=== PATIENT | female | born 1960 | race Caucasian/White ===

== ENCOUNTER 2018-08-04 06:20 | Day surgery (SDC) | payer BC ==
--- NOTE | 2018-08-01 19:06 | HP ---
PREOPERATIVE HISTORY AND PHYSICAL: DATE OF ADMISSION/SURGERY: 08/04/18 - OR [facility] DATE OF OFFICE VISIT: 08/01/18 ATTENDING SURGEON: Dr. Isa Mccullough.* (DICTATED BY JAMAAL ROSS) PROCEDURE: Right shoulder arthroscopic rotator cuff repair, decompression, debridement, removal of loose body, and excision of distal clavicle. CHIEF COMPLAINT: Right shoulder pain. HISTORY OF PRESENT ILLNESS: Janet is a 58-year-old female, who presents to the clinic for right shoulder pain due to a partial-thickness rotator cuff tear , loose body, biceps tendinitis, and AC joint arthritis. She has failed conservative measures and has therefore agreed to undergo a right shoulder arthroscopic rotator cuff repair, decompression, debridement, removal of loose body, and excision of distal clavicle with Dr. Mccullough on 08/04/18. PAST MEDICAL HISTORY: Hypertension, spinal stenosis, and asthma. PAST SURGICAL HISTORY: Left knee replacement, ACL reconstruction on the left, and tubal ligation. The patient denies prior complications with anesthesia. MEDICATIONS: 1. Avapro 150 mg once daily. 2. Hydrochlorothiazide 25 mg once daily. 3. Vitamin D3 1000 units 1 by mouth twice a day. 4. Clindamycin 300 mg 2 tabs 1 hour prior to dental procedures. ALLERGIES: IODINE, PENICILLINS, SHELLFISH-DERIVED PRODUCTS, TREE NUTS. FAMILY HISTORY: Positive for heart disease and diabetes. Her dad has a history of DVT, but he had a history of leg injury with scarring that predisposed him to this. No other family history of DVT or PE. SOCIAL HISTORY: She lives with her spouse. She denies tobacco use. She denies alcohol consumption. She is left-hand dominant. REVIEW OF SYSTEMS: A 14-point review of systems was reviewed with the patient. Positive for current complaint, otherwise negative. Denies fever, chills, chest pain, shortness of breath, history of DVT or PE, history of bleeding disorder. PHYSICAL EXAMINATION GENERAL: A 58-year-old well-developed, well-nourished female, in no acute distress. VITAL SIGNS: Height 63, weight 192, pulse 84, blood pressure 148/90, respiratory rate , temperature 96.8, BMI 34.0. HEENT: Normocephalic, atraumatic. PERRLA. Throat clear. NECK: Supple. PULMONARY: Lungs are clear to auscultation bilaterally. No wheezing, rhonchi, or rales. CARDIO: Regular rate and rhythm. S1, S2. No murmurs, gallops, or rubs. No edema. ABDOMEN: Positive bowel sounds. Soft, nontender. NEURO: Alert and oriented x3. Cranial nerves grossly intact. MUSCULOSKELETAL: Right upper extremity: Skin is intact. No warmth or erythema. Forward flexion to 150, abduction to 150, external rotation to 50. Full range of motion of the elbow, wrist, and hand. Internal rotation to thoracolumbar spine. +4/5 strength to rotator cuff testing with pain. Tender over the AC joint and biceps tendon. +2 radial pulse. Sensation intact to light touch distally. DIAGNOSTIC STUDIES: MRI revealed partial-thickness tearing of the rotator cuff with tendinopathy, loose body in the subcoracoid space with significant biceps tendinitis, no obvious glenohumeral joint osteoarthritis, and severe AC joint osteoarthritis. IMPRESSION: Right shoulder acromioclavicular joint arthritis, biceps tendinitis , rotator cuff tear, and loose body. PLAN: The patient is scheduled to undergo a right shoulder arthroscopic rotator cuff repair, decompression, debridement, removal of loose body, and excision of distal clavicle with Dr. Mccullough on 08/04/18. Percocet will be used for postop pain management. She will follow up 10 to 14 days postop for followup and suture removal. JAMAAL ROSS [id number]/[facility] #: [id number] [facility] CENTERRebecca
[~2018-08-04 06:20] MED LIST: Buffered Lidocaine 1% SYRIN* 1 ML/SYRINGE INTRADERM ONE; Dexamethasone TAB* 4 MG ONE; Dexamethasone TAB* 4 MG PO ONE; DiMENhydriNATE IV* 50 MG/ML VIAL IV PUSH PRN; Famotidine IV* 10 MG/ML 2 ML (20 mg) IV ONE; Famotidine IV* 10 MG/ML 2 ML (20 mg) ONE; Lactated Ringers 1000 ML Bag* 1,000 ML IV SCH; Levalbuterol 0.63MG/3ML NEB* UNIT OF USE INH ONE; Morphine 4 MG/ML VIAL (1 ml) 4 MG/ML VIAL IV PRN; Naloxone* 0.4 MG/ML 1 ML VIAL IV PRN; Ondansetron INJ* 2 MG/ML VIAL ONE; PROCHLORPERAZINE INJ 5 MG/ML 2 ML VIAL IV PRN; Scopolamine 1.5 mg* PATCH TRANSDERM PRN; fentaNYL* 50 MCG/ML 2 ML VIAL (100 MCG VIAL) IV PRN; oxyCODONE/Acetamin 5/325 MG* TAB PO PRN
[2018-08-04] MEDS ORDERED: ceFAZolin 2 GM in NS PREMIX(*) 2 GM/100 ML BAG IVPB ONE (06:29)
[2018-08-04] MEDS ORDERED: Ondansetron ODT TAB* 4 MG ONE (06:53)
[2018-08-04] MEDS ORDERED: Bupivacaine 0.25% SDV* 30 ML ONE ×2 (06:58→08:16)
[2018-08-04] MEDS ORDERED: Propofol* 10 MG/ML 20 ML BTL ONE (07:06)
[2018-08-04] MEDS ORDERED: PROCHLORPERAZINE INJ 5 MG/ML 2 ML VIAL ONE (07:06)
[2018-08-04] MEDS ORDERED: Lidocaine 2% PF * 5 ML VIAL ONE ×2 (07:06→07:08)
[2018-08-04] MEDS ORDERED: Ketorolac INJ* 30 MG/ML 1 ML VIAL ONE (07:06)
[2018-08-04] MEDS ORDERED: fentaNYL* 50 MCG/ML 2 ML VIAL (100 MCG VIAL) ONE (07:07)
[2018-08-04] MEDS ORDERED: Midazolam* 1 MG/ML 5 ML VIAL (5 MG) ONE (07:07)
[2018-08-04] MEDS ORDERED: Phenylephrine 10 MG/ML VIAL* 1 ML VIAL ONE (08:02)
[2018-08-04] MEDS ORDERED: oxyCODONE/Acetamin 5/325 MG* TAB ONE (09:30)
[2018-08-04 10:33] VITALS: BP 125/71
--- NOTE | 2018-08-05 00:05 | OP ---
DATE OF OPERATION: 08/04/18 - [facility] DATE OF : 58 SURGEON: Isa Mccullough MD ASSISTANTS: 1. JAMAAL Miramontes 2. RUSH Gamino student. ANESTHESIOLOGIST: Dr. Hightower. ANESTHESIA: General with interscalene block. PRE-OP DIAGNOSES: 1. Right shoulder glenohumeral arthritis. 2. Loose body. 3. Partial thickness tear of the rotator cuff. 4. Biceps tendonitis. 5. Acromioclavicular joint arthritis. POST-OP DIAGNOSES: 1. Right shoulder glenohumeral arthritis. 2. Loose body. 3. Partial thickness tear of the rotator cuff. 4. Biceps tendonitis. 5. Acromioclavicular joint arthritis. OPERATIVE PROCEDURE: Right shoulder arthroscopy with: 1. Extensive glenohumeral debridement with acromioplasty. 2. Removal of loose body x1 greater than 5 mm. 3. Rotator cuff repair with Regeneten patch. 4. Subacromial decompression with acromioplasty. 5. Distal clavicle excision. 6. Subpectoral biceps tenodesis. COMPLICATIONS: None. ESTIMATED BLOOD LOSS: Minimal. IMPLANTS: One Regeneten patch size medium and one Q-FIX anchor 2.8 mm. INDICATIONS: Janet Peña is a 58-year-old female who had failed conservative management and was diagnosed with high-grade partial thickness tear of the rotator cuff as well as significant arthritis of the glenohumeral joint. She had the small loose body as well. She has failed conservative management including physical therapy, antiinflammatories, ice and heat, and has elected to proceed with surgical treatment. DESCRIPTION OF PROCEDURE: The patient was greeted in the preoperative area by the attending surgeon. Correct extremity was marked and consent was confirmed. The patient then underwent interscalene nerve block after which she was brought back to the operating suite, where she was placed in supine position on the operating table. She underwent general anesthesia and LMA intubation, after which she was placed in the left lateral decubitus position with all bony prominences well padded. She was secured with pegboard. The right shoulder was draped unsterile with 10 pounds of traction. The right shoulder was then prepped and draped in the usual sterile fashion, beginning with chlorhexidine soap, scrub, and alcohol wipe and a final prep of ChloraPrep. After appropriate surgical pause indicating side, site, procedure, and administration of antibiotics, the standard postero-lateral portal was made sharply with 11 blade. The scope was introduced into the joint. The joint was examined. There were grade 3 changes to the glenohumeral joint. There was a large loose body that present. It was about 1.5 cm. The anterior portal was made using 18 gauge for localization. The portal was expanded to allow for grasper to remove the large loose body which was removed in 1 piece. The kali were then used to do debridement of the chondroplasty as well as debride the anterior, posterior, and superior labrum. The biceps had significant synovitis and tendonitis. Superior labrum was torn and the biceps was subluxed. The undersurface of the rotator cuff had a high-grade partial thickness tear with an unstable flap, which was debrided back. The inferior recess was intact, although there was significant synovitis. Subscap was intact. The shaver was used to help debride the anterior, posterior, and superior labrum. The biceps was then tenotomized for later tenodesis. The undersurface of the supraspinatus was also debrided back. Once the debridement was complete, attention was directed to the subacromial space. With the scope in the subacromial space, the lateral portal was made in an outside- in fashion. Shaver was used to debride back the abundant bursa that was present. The rotator cuff had some bursa-sided fraying on that side but there was no full thickness tear. There was an irregular anterolateral spur, which was debrided back using a 4-0 oval na. After this was complete, the attention was directed to the AC joint. With the na positioned into the anterior portal, the distal 8 mm of clavicle were resected under direct visualization. After this was done, all loose debris was removed and attention was directed to the rotator cuff. The cuff was examined again. Again, there was some mild fraying of the rotator cuff and a decision was made to do a Regeneten patch as a repair. The size medium patch was brought to the field and placed in the area of the tear. This was then secured medially with tendon sadiq and then laterally with bone sadiq, after which this was taken through range of motion and found to be stable. At this point, all fluid and debris was removed and attention was directed to the biceps tenodesis. The bed was air planed to the right side. The anterior aspect of the wound was prepped again using ChloraPrep. A 15-blade was used to make incision along the biceps tendon. Soft tissues were carefully dissected to expose the biceps tendon in the groove, which was then removed and brought through the wound. The groove was then prepared in the usual fashion with the electrocautery device , red ball rasp, and osteotome. The Q-Fix anchor was placed with excellent purchase. It was then drilled unicortically and then placed with excellent purchase. The sutures were the passed through the tendon in a Juan Manuel-John type configuration and then excess stump was excised and shuttled down. The wounds were then copiously irrigated. The anterior wound was closed in layers with 3- 0 Monocryl. The portals were closed with 3-0 nylon. Sterile dressings were applied as well as a Cryo/Cuff and UltraSling. She was awoken from anesthesia and transferred to PACU in stable condition. POSTOPERATIVE PLAN: She will be nonweightbearing. She will be discharged on pain medications. DVT prophylaxis was considered but deferred due to no previous personal or family history. I will see the patient back in 10 to 14 days. [id number]/[facility] #: [id number] JENNIFER
[2018-08-07] MEDS ORDERED: Scopolamine PATCH Remove* 1 NOTE MISC PATCH OFF ONE (05:45)
== END 2018-08-04 10:30 | disposition home or self-care (01) ==
LOC: OREAST 06:20
PROVIDERS: ATTEND Orthopaedic Surgery
DX: M75.111 Incomplete rotator cuff tear or rupture of right shoulder, not specified as traumatic (principal); M19.011 Primary osteoarthritis, right shoulder; M24.011 Loose body in right shoulder; M75.21 Bicipital tendinitis, right shoulder; G89.18 Other acute postprocedural pain; I10 Essential (primary) hypertension; J45.909 Unspecified asthma, uncomplicated
CPT/HCPCS: 88304; A9270-GY; C1713; C1776; J0690; J0780; J1885; J2250; J2704; J3010; J8540

== ENCOUNTER 2020-10-04 07:28 | Observation (INO) ==
[~2020-10-04 07:28] MED LIST changes: +Buffered Lidocaine 1% SYRIN 1 ml INTRADERM ONE; -Buffered Lidocaine 1% SYRIN* 1 ML/SYRINGE INTRADERM ONE; -Dexamethasone TAB* 4 MG ONE; -Dexamethasone TAB* 4 MG PO ONE; +DiMENhydriNATE IV 50 mg/ml 1 ml VIAL IV PUSH ONE; -DiMENhydriNATE IV* 50 MG/ML VIAL IV PUSH PRN; -Famotidine IV* 10 MG/ML 2 ML (20 mg) IV ONE; -Famotidine IV* 10 MG/ML 2 ML (20 mg) ONE; -Lactated Ringers 1000 ML Bag* 1,000 ML IV SCH; +Lactated Ringers 1000 ml BAG 1,000 ML IV SCH; -Levalbuterol 0.63MG/3ML NEB* UNIT OF USE INH ONE; -Morphine 4 MG/ML VIAL (1 ml) 4 MG/ML VIAL IV PRN; -Naloxone* 0.4 MG/ML 1 ML VIAL IV PRN; -Ondansetron INJ* 2 MG/ML VIAL ONE; -PROCHLORPERAZINE INJ 5 MG/ML 2 ML VIAL IV PRN; -Scopolamine 1.5 mg* PATCH TRANSDERM PRN; -fentaNYL* 50 MCG/ML 2 ML VIAL (100 MCG VIAL) IV PRN; -oxyCODONE/Acetamin 5/325 MG* TAB PO PRN
[2020-10-04] MEDS ORDERED: ceFAZolin 2 GM PREMIX 2 GM/50 ML BAG ONE (07:41)
[2020-10-04] MEDS ORDERED: DiMENhydriNATE IV 50 mg/ml 1 ml VIAL ONE (07:46)
[2020-10-04] MEDS ORDERED: Ropivacaine 5 MG/ML 20 ML VIAL 0.5% (100 MG) ONE (07:48)
[2020-10-04] MEDS ORDERED: Midazolam 2 mg/2 ml VIAL 1 mg/ml 2 ml VIAL (2 mg) ONE ×2 (08:09→08:11)
[2020-10-04] MEDS ORDERED: Ketamine HCL 50 mg/ml 10 ml VIAL (500 MG) ONE (08:09)
[2020-10-04] MEDS ORDERED: fentaNYL 100 mcg/2 ml 50 MCG/ML VIAL ONE (08:11)
[2020-10-04] MEDS ORDERED: Dexamethasone IV 4 MG/ML VIAL 1 ml VIAL ONE (08:11)
[2020-10-04] MEDS ORDERED: Naloxone 0.4 mg VIAL 0.4 mg/ml 1 ml VIAL IV PRN (08:44)
[2020-10-04] MEDS ORDERED: Ondansetron 4 mg VIAL 2 MG/ML 2 ml VIAL IV PRN ×2 (08:44→11:08)
[2020-10-04] MEDS ORDERED: fentaNYL 100 mcg/2 ml 50 MCG/ML VIAL IV PRN (08:44)
[2020-10-04] MEDS ORDERED: HYDROcodone/ACETAMIN 5/325 mg TAB PO PRN (08:44)
[2020-10-04] MEDS ORDERED: Metoclopramide 5 MG/ML VIAL (10 mg) IV PRN (08:44)
[2020-10-04] MEDS ORDERED: Lidocaine 2% PF 5 ML VIAL ONE (09:01)
[2020-10-04] MEDS ORDERED: Glycopyrrolate IV 0.2 MG/ML 1 ML VIAL ONE (09:12)
[2020-10-04] MEDS ORDERED: Morphine 2 MG/ML SYRINGE IV PRN (11:08)
[2020-10-04] MEDS ORDERED: Ondansetron ODT 4 mg TAB 4 MG TAB PO PRN (11:08)
[2020-10-04] MEDS ORDERED: Magnesium Hydroxide LIQ 30 ML UDC PO PRN (11:08)
[2020-10-04] MEDS ORDERED: diPHENhydraMINE IV 50 MG/ML 1 ml VIAL (BENADRYL) IV PRN (11:08)
[2020-10-04] MEDS ORDERED: diPHENhydraMINE 25 mg TAB PO PRN (11:08)
[2020-10-04] MEDS ORDERED: Lactulose 30 ml UDC PO PRN (11:08)
[2020-10-04] MEDS ORDERED: HYDROcodone/ACETAMIN 5/325 mg TAB ONE (11:42)
[2020-10-04] MEDS ORDERED: Lactated Ringers 1000 ml BAG 1,000 ML IV SCH (12:00)
[2020-10-04 16:22] VITALS: BP 132/68
[2020-10-04] MEDS ORDERED: Clindamycin 600 MG/D5W BAG 600 MG/50 ML BAG IV SCH (17:00)
[2020-10-04] MEDS ORDERED: Magnesium Hydroxide LIQ 30 ML UDC PO SCH (21:00)
[2020-10-05] MEDS ORDERED: CMC:Omeprazole 20 mg CAP (NF) PO SCH (09:00)
[2020-10-05] MEDS ORDERED: Vitamin THERAPEUTIC TAB PO SCH (09:00)
[2020-10-05] MEDS ORDERED: IRBESARTAN 150 MG PO SCH (09:00)
== END 2020-10-04 17:30 | disposition home or self-care (01) ==
LOC: SSU 07:28 → OR 07:28 → EDSTATUS 08:00
PROVIDERS: ADMIT Orthopaedic Surgery Adult Reconstructive Orthopaedic Surgery; ATTEND Orthopaedic Surgery Adult Reconstructive Orthopaedic Surgery

== ENCOUNTER 2021-04-25 06:56 | Inpatient (IN) ==
[~2021-04-25 06:56] MED LIST changes: +HYDROcodone/ACETAMIN 5/325 mg TAB PO PRN; +Lidocaine 2% PF 5 ML VIAL ONE; +Metoclopramide 5 MG/ML VIAL (10 mg) IV PRN; +Midazolam 2 mg/2 ml VIAL 1 mg/ml 2 ml VIAL (2 mg) ONE; +Naloxone 0.4 mg VIAL 0.4 mg/ml 1 ml VIAL IV PRN; +Ondansetron 4 mg VIAL 2 MG/ML 2 ml VIAL IV PRN; +fentaNYL 100 mcg/2 ml 50 MCG/ML VIAL IV PRN; +fentaNYL 100 mcg/2 ml 50 MCG/ML VIAL ONE
[2021-04-25] MEDS ORDERED: DiMENhydriNATE IV 50 mg/ml 1 ml VIAL ONE (07:10)
[2021-04-25] MEDS ORDERED: Clindamycin 900 MG/D5W BAG 900 MG/50 ML BAG IVPB ONE (07:10)
[2021-04-25] MEDS ORDERED: ceFAZolin 2 GM PREMIX 2 GM/50 ML BAG ONE (07:25)
[2021-04-25] MEDS ORDERED: Phenylephrine 40 mcg/mL 10mL (400mcg) SYRINGE ONE (08:34)
[2021-04-25] MEDS ORDERED: diPHENhydraMINE IV 50 MG/ML 1 ml VIAL (BENADRYL) IV PRN (09:06)
[2021-04-25] MEDS ORDERED: Lactulose 30 ml UDC PO PRN (09:06)
[2021-04-25] MEDS ORDERED: Ondansetron 4 mg VIAL 2 MG/ML 2 ml VIAL IV PRN (09:06)
[2021-04-25] MEDS ORDERED: Ondansetron ODT 4 mg TAB 4 MG TAB PO PRN (09:06)
[2021-04-25] MEDS ORDERED: diPHENhydraMINE 25 mg TAB PO PRN (09:06)
[2021-04-25] MEDS ORDERED: Morphine 2 MG/ML SYRINGE IV PRN (09:06)
[2021-04-25] MEDS ORDERED: Magnesium Hydroxide LIQ 30 ML UDC PO PRN (09:06)
[2021-04-25] MEDS ORDERED: Albuterol HFA INHALER 8 gm MDI INH PRN (09:12)
[2021-04-25] MEDS ORDERED: Lactated Ringers 1000 ml BAG 1,000 ML IV SCH (10:00)
[2021-04-25] MEDS: ceFAZolin 1 GM ADVAN 1 GM in NS 0.9% 50 ML 50 ML IVPB SCH (15:47)
[2021-04-25] MEDS: Magnesium Hydroxide LIQ 30 ML UDC PO SCH (21:08)
[2021-04-26] MEDS: ceFAZolin 1 GM ADVAN 1 GM in NS 0.9% 50 ML 50 ML IVPB SCH ×2 (00:32→07:26)
[2021-04-26 05:50] LABS: Hematocrit 29 % (35-47); Mean Platelet Volume 7.3 fL (7.4-10.4); Platelet Count 244 10^3/uL (150-450)
[2021-04-26 06:09] LABS: Calcium 8.7 mg/dL (8.6-10.3); Potassium 3.6 mmol/L (3.5-5.0); eGFR CKD-EPI 100.6 (>60)
[2021-04-26] MEDS: Magnesium Hydroxide LIQ 30 ML UDC PO SCH (08:03)
[2021-04-26] MEDS ORDERED: Vitamin THERAPEUTIC TAB PO SCH (09:00)
[2021-04-26 12:50] VITALS: BP 103/53
== END 2021-04-26 13:45 | disposition home or self-care (01) | DRG 301 ==
LOC: AA 06:56 → INTOOBSV 06:56 → SSU 12:18
PROVIDERS: ADMIT Orthopaedic Surgery Adult Reconstructive Orthopaedic Surgery; ATTEND Orthopaedic Surgery Adult Reconstructive Orthopaedic Surgery